=== PATIENT | male | born 1970 | race Caucasian/White ===

== ENCOUNTER 2017-02-08 17:30 | Emergency (ER) | payer OTHER | END 2017-02-08 20:55 | disposition home or self-care (01) | LOC: ER1 17:30 | DX: S39.012A Strain of muscle, fascia and tendon of lower back, initial encounter (principal); M51.36 Other intervertebral disc degeneration, lumbar region; I10 Essential (primary) hypertension; I25.10 Atherosclerotic heart disease of native coronary artery without angina pectoris; F17.210 Nicotine dependence, cigarettes, uncomplicated; Z88.6 Allergy status to analgesic agent; Z79.899 Other long term (current) drug therapy; X58.XXXA Exposure to other specified factors, initial encounter | CPT/HCPCS: 96372; 99283; J1100; J1885 ==

== ENCOUNTER 2017-02-19 18:56 | Emergency (ER) | payer OTHER | END 2017-02-19 20:40 | disposition home or self-care (01) | LOC: ER1 18:56 | DX: M54.5 Low back pain (principal); G89.29 Other chronic pain; I10 Essential (primary) hypertension; J44.9 Chronic obstructive pulmonary disease, unspecified; F41.9 Anxiety disorder, unspecified; F17.210 Nicotine dependence, cigarettes, uncomplicated; Z88.6 Allergy status to analgesic agent; Z79.82 Long term (current) use of aspirin; Z79.899 Other long term (current) drug therapy | CPT/HCPCS: 96372; 99283; J1100; J1885 ==

== ENCOUNTER 2017-03-10 18:56 | Emergency (ER) | payer OTHER ==
[2017-03-10 23:26] LABS: HEMOGLOBIN 13.8 gm/dl (14.0-17.5); RED BLOOD COUNT 4.63 M/UL (4.20-5.50); WHITE BLOOD COUNT 6.6 K/UL (4.5-11.0)
[2017-03-10 23:38] LABS: BUN/CREATININE RATIO 13 (0-10)
== END 2017-03-11 04:30 | disposition home or self-care (01) ==
LOC: ER1 18:56
PROVIDERS: Student in an Organized Health Care Education/Training Program
DX: N30.01 Acute cystitis with hematuria (principal); F17.210 Nicotine dependence, cigarettes, uncomplicated; Z88.6 Allergy status to analgesic agent; Z95.1 Presence of aortocoronary bypass graft; Z95.5 Presence of coronary angioplasty implant and graft; Z79.82 Long term (current) use of aspirin; Z79.899 Other long term (current) drug therapy
CPT/HCPCS: 36415; 74000; 80053; 81001; 85025; 96361; 96365; 96375; 99284; J0696; J1885; J2270; J2405

== ENCOUNTER 2017-03-18 11:51 | Emergency (ER) | payer OTHER ==
[2017-03-18 13:33] LABS: HEMOGLOBIN 15.6 gm/dl (14.0-17.5); RED BLOOD COUNT 5.27 M/UL (4.20-5.50); WHITE BLOOD COUNT 7.6 K/UL (4.5-11.0)
[2017-03-18 13:50] LABS: BUN/CREATININE RATIO 11 (0-10)
== END 2017-03-18 18:50 | disposition home or self-care (01) ==
LOC: ER1 11:51
PROVIDERS: Nurse Practitioner Family
DX: M51.26 Other intervertebral disc displacement, lumbar region (principal); F17.210 Nicotine dependence, cigarettes, uncomplicated
CPT/HCPCS: 36415; 72131; 80053; 81001; 85025; 87086; 96372; 96374; 96375; 99284; J1100; J1885; J2270; J2405

== ENCOUNTER 2017-04-08 19:20 | Emergency (ER) | payer OTHER | END 2017-04-08 20:55 | disposition home or self-care (01) | LOC: ER1 19:20 | DX: M48.06 Spinal stenosis, lumbar region (principal); I10 Essential (primary) hypertension; E78.5 Hyperlipidemia, unspecified; F17.210 Nicotine dependence, cigarettes, uncomplicated; Z79.899 Other long term (current) drug therapy | CPT/HCPCS: 96372; 99283; J1100; J1885 ==

== ENCOUNTER → 2017-05-11 | Outpatient (CLI) | payer OTHER | LOC: EMI 05-09 15:15 → KOH-I 05-14 14:30 | DX: M54.9 Dorsalgia, unspecified (principal); M47.9 Spondylosis, unspecified; M51.36 Other intervertebral disc degeneration, lumbar region; M51.26 Other intervertebral disc displacement, lumbar region; M51.27 Other intervertebral disc displacement, lumbosacral region; M99.63 Osseous and subluxation stenosis of intervertebral foramina of lumbar region | CPT/HCPCS: 72148 ==